=== PATIENT | female | born 1950 | race Caucasian/White ===

== ENCOUNTER → 2017-04-11 | Outpatient (CLI) | payer OTHER ==
--- NOTE | 2017-04-21 10:25 | Diagnostic Imaging Report ---
#[id number] - [facility] #BILATERAL DIGITAL SCREENING MAMMOGRAM WITH CAD: 04/11/2017 CLINICAL: Routine screening. Comparison is made to exams dated: 03/13/2016 mammogram and 09/14/2014 mammogram - [facility]. Current study contains 4 films. The tissue of both breasts is predominantly fatty. Current study was also evaluated with a Computer Aided Detection (CAD) system. No significant masses, calcifications, or other findings are seen in either breast. There has been no significant interval change. IMPRESSION: BENIGN There is no mammographic evidence of malignancy. A 1 year screening mammogram is recommended. The patient will be notified by letter of the results. Tomás blum/ada:04/18/2017 14:30:45 Computer Teacher: aC NAVARRO)(M), [facility] letter sent: Compared to Prior B9 Mammogram BI-RADS: 2 Benign
== END ==
LOC: MAMMO 10:40
PROVIDERS: ATTEND Family Medicine
DX: Z12.31 Encounter for screening mammogram for malignant neoplasm of breast (principal)

== ENCOUNTER → 2017-10-17 | Outpatient (CLI) | payer MEDICARE ==
[~2017-10-17] MED LIST: GADOBENATE DIMEGLUMINE 1 ML IV ONE
[2017-10-17 14:25] LABS: BLOOD UREA NITROGEN 13 mg/dL (7-26); BUN/CREATININE RATIO 15 (6-25); CREATININE, SERUM 0.84 mg/dL (0.57-1.11); EST GLOMERULAR FILTRATION RATE > 60 ML/MIN (60-)
--- NOTE | 2017-10-18 22:16 | Diagnostic Imaging Report ---
EXAMINATION: MRI of the brain with and without contrast HISTORY: Amnesia COMPARISON: None. TECHNIQUE: Pre-contrast: Sagittal T2; axial T1-IR, T2, MPGR, DWI, FLAIR; Post-contrast: axial and coronal T1. Intravenous contrast: 11 mL of MultiHance. IMAGE QUALITY: Adequate. FINDINGS: Parenchyma: 1. 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 2. Few scattered white matter T2 and FLAIR hyperintense foci, most likely nonspecific chronic microvascular ischemic changes. No abnormal enhancement. 3. No mass or hemorrhage. No acute or chronic vascular insult. Skull: No abnormal signal intensity or enhancement. Major arteries: Expected flow voids present. Dural sinuses: Expected flow voids present. Ventricles: No hydrocephalus or displacement. Subarachnoid spaces: No abnormal signal intensity or enhancement. Brain volume: Normal for age. Foramen magnum: No mass, Chiari malformation, or basilar invagination. Sella: No gross mass. Paranasal/mastoid sinuses: Unremarkable. 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 IMPRESSION: 1. 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 2. Minimal chronic microvascular ischemic changes. Signed by: Dr. Marce Zuluaga M.D. on 10/18/2017 10:13 PM
== END ==
LOC: MRI 13:44
PROVIDERS: ATTEND Family Medicine
DX: R41.3 Other amnesia (principal); G40.209 Localization-related (focal) (partial) symptomatic epilepsy and epileptic syndromes with complex partial seizures, not intractable, without status epilepticus
CPT/HCPCS: 36415; 70553; 82565; 84520

== ENCOUNTER → 2020-12-28 | Outpatient (CLI) | payer MEDICARE | LOC: MAMMO 09:10 | PROVIDERS: ATTEND Student in an Organized Health Care Education/Training Program | DX: Z12.31 Encounter for screening mammogram for malignant neoplasm of breast (principal); M81.8 Other osteoporosis without current pathological fracture | CPT/HCPCS: 77067; 77080 ==

== ENCOUNTER → 2021-12-28 | Outpatient (CLI) | payer MEDICARE | LOC: MAMMO 10:21 | PROVIDERS: ATTEND Obstetrics & Gynecology | DX: Z12.31 Encounter for screening mammogram for malignant neoplasm of breast (principal) | CPT/HCPCS: 77067 ==

== ENCOUNTER → 2023-01-28 | Outpatient (REF) | payer MEDICARE | LOC: MAMMO 12:30 | PROVIDERS: ATTEND Obstetrics & Gynecology | DX: Z12.31 Encounter for screening mammogram for malignant neoplasm of breast (principal) | CPT/HCPCS: 77067 ==

== ENCOUNTER → 2023-10-29 | Outpatient (REF) | payer MEDICARE | LOC: DX 09:41 | PROVIDERS: ATTEND Student in an Organized Health Care Education/Training Program | DX: M81.0 Age-related osteoporosis without current pathological fracture (principal); Z78.0 Asymptomatic menopausal state | CPT/HCPCS: 77080 ==

== ENCOUNTER → 2024-03-15 | Outpatient (REF) | payer MEDICARE | LOC: MAMMO 10:01 | PROVIDERS: ATTEND Student in an Organized Health Care Education/Training Program | DX: Z12.31 Encounter for screening mammogram for malignant neoplasm of breast (principal) | CPT/HCPCS: 77067 ==